=== PATIENT | male | born 1970 | race African-American/Black ===

== ENCOUNTER 2018-07-02 15:13 | Emergency (ER) | payer OTHER ==
[2018-07-02] MEDS ORDERED: Lorazepam 2 MG/ML VIAL ONE (16:23)
--- NOTE | 2018-07-02 16:30 | CT ---
NONCONTRAST CT HEAD: Date: )07/02/18 HISTORY: New onset seizure. COMPARISON: 02/19/05. FINDINGS: There is no evidence of a hemorrhage, acute infarction, mass effect, or midline shift. Ventricular sy stem is normal in size, shape, and position. There is minimal mucosal thickening in posterior left et hmoidal air cell. Mastoid air cells are clear. Calvarial structures are intact. The osseous density a djacent to the lateral right parietal bone is again seen and stable from prior study, and may represe nt an osteoma. IMPRESSION: No acute intracranial abnormality is demonstrated. POS: [facility]
[2018-07-02 16:53] LABS: #Basophils 0.1 thou/uL (0.0-0.2); #Monocytes 0.3 thou/uL (0.11-0.59); #Neutrophils 2.9 thou/uL (1.40-6.50); %Basophils 1.3 % (0.0-1.0); %Eosinophils 0.3 % (0.0-10.0); %Lymphocytes 22.9 % (21.0-51.0); %Monocytes 6.9 % (0.0-10.0); %Neutrophils 68.6 % (42.0-75.0); Hemoglobin 14.8 g/dL (14.0-18.0); Mean Corpuscular HGB CONC 34.8 g/dL (32.0-36.0); Mean Corpuscular Hemoglobin 35.2 pg (27.0-31.0); Mean Platelet Volume 7.1 fL (7.4-10.4); Platelet Count 157 thou/uL (130-400); RBC Distribution Width 14.3 % (11.5-14.5); Red Blood Cell (RBC) Count 4.21 mill/uL (4.70-6.10); White Blood Cell (WBC) Count 4.2 thou/uL (4.8-10.8)
[2018-07-02 17:07] LABS: ALT (SGPT) 47 U/L (8-55); AST (SGOT) 126 U/L (5-34); Albumin 4.4 g/dL (3.5-5.0); Alkaline Phosphatase 57 U/L (40-150); Anion Gap 26 mmol/L (10-20); BUN (Urea Nitrogen) 13 mg/dL (8.9-20.6); Bilirubin, Total 0.7 mg/dL (0.2-1.2); Calc. Creatinine Clearance 0 mL/min (70-130); Calcium 9.6 mg/dL (7.8-10.44); Carbon Dioxide 17 mmol/L (22-29); Chloride 97 mmol/L (98-107); Estimated GFR-MDRD Greater than 90; Glucose 88 mg/dL (70-105); Potassium 4.1 mmol/L (3.5-5.1); Protein, Total 7.4 g/dL (6.0-8.3); Sodium 136 mmol/L (136-145)
[2018-07-02 17:09] LABS: CKMB 3.3 ng/mL (0-6.6); Troponin I Less than 0.010 ng/mL (< 0.028)
== END 2018-07-02 18:28 | disposition home or self-care (01) ==
LOC: ERS 15:13
DX: R56.9 Unspecified convulsions (principal); F32.9 Major depressive disorder, single episode, unspecified; F17.210 Nicotine dependence, cigarettes, uncomplicated; Z79.899 Other long term (current) drug therapy
CPT/HCPCS: 36415; 70450; 80053; 82553; 84146; 84484; 85025; 96374; J2060

== ENCOUNTER 2019-09-29 04:25 | Observation (INO) | payer OTHER, SELFPAY ==
[2019-09-29 05:49] LABS: Hemoglobin 15.7 g/dL (14.0-18.0); Mean Corpuscular HGB CONC 34.1 g/dL (32.0-36.0); Mean Corpuscular Hemoglobin 32.9 pg (27.0-31.0); Mean Corpuscular Volume 96.5 fL (78.0-98.0); RBC Distribution Width 13.9 % (11.5-14.5); Red Blood Cell (RBC) Count 4.78 mill/uL (4.70-6.10)
[2019-09-29 05:57] LABS: ALT (SGPT) 87 U/L (8-55); AST (SGOT) 87 U/L (5-34); Albumin 4.2 g/dL (3.5-5.0); Alkaline Phosphatase 51 U/L (40-110); Anion Gap 14 mmol/L (10-20); BUN (Urea Nitrogen) 8 mg/dL (8.9-20.6); Bilirubin, Total 0.6 mg/dL (0.2-1.2); Calc. Creatinine Clearance 0 mL/min (70-130); Calcium 9.1 mg/dL (7.8-10.44); Carbon Dioxide 26 mmol/L (22-29); Chloride 99 mmol/L (98-107); Estimated GFR-MDRD Greater than 90; Globulin 2.5 g/dL (2.4-3.5); Glucose 94 mg/dL (70-105); Potassium 3.5 mmol/L (3.5-5.1); Protein, Total 6.7 g/dL (6.0-8.3); Sodium 135 mmol/L (136-145)
[2019-09-29 06:02] LABS: #Basophils 0.1 thou/uL (0.0-0.2); #Eosinphils 0.1 thou/uL (0.0-0.7); #Lymphocytes 1.8 thou/uL (1.20-3.40); #Monocytes 0.5 thou/uL (0.11-0.59); #Neutrophils 2.6 thou/uL (1.40-6.50); %Basophils 1.8 % (0.0-1.0); %Eosinophils 2.5 % (0.0-10.0); %Lymphocytes 34.9 % (21.0-51.0); %Monocytes 9.2 % (0.0-10.0); %Neutrophils 51.5 % (42.0-75.0); Mean Platelet Volume 8.8 fL (7.4-10.4); Platelet Count 108 thou/uL (130-400); Platelet Morphology Comment Appears Decreased
[2019-09-29 09:08] LABS: Troponin I Less than 0.010 ng/mL (< 0.028)
--- NOTE | 2019-09-29 09:17 | RAD ---
RADIOGRAPH CHEST 1 VIEW: DATE: 09/29/19 HISTORY: 49-year-old male with chest pain and cough. FINDINGS: There are no air space densities, pulmonary edema, pneumothorax, or cardiomegaly. The lateral costop hrenic angles are sharp. IMPRESSION: No acute cardiopulmonary findings. jn [] POS: [facility]
[2019-09-29] MEDS ORDERED: Nitroglycerin 0.4 MG TAB (25 Tab Bottle) PO PRN (09:48)
[2019-09-29 09:57] VITALS: BMI 26.6
[2019-09-29] MEDS ORDERED: Ipratropium Bromide 2.5 ml Neb NEB PRN (10:05)
[2019-09-29 15:12] LABS: Troponin I Less than 0.010 ng/mL (< 0.028)
[2019-09-29 15:34] VITALS: BP 111/67; TEMP 98.4
--- NOTE | 2019-09-29 16:07 | NM ---
MYOCARDIAL PERFUSION SCAN WITH SPECT IMAGING: HISTORY: Chest pain. TECHNIQUE: Examination was performed using 27.8 millicuries of 99m technetium sestamibi on the stress and 9.1 mi llicuries on the resting images. FINDINGS: This shows a normal distribution of radiopharmaceutical without signs of ischemia or scar. Wall motion: There is symmetric contractility to the ventricle. Left ventricular ejection fraction: The calculated left ventricular ejection fraction is 55%. IMPRESSION: No evidence of ischemic change. POS: [facility]
[2019-09-29] MEDS ORDERED: Regadenoson 0.4 MG/5 ML SYRINGE ONE (16:09)
[2019-09-29] MEDS ORDERED: levETIRAcetam 500 MG TAB PO SCH (21:00)
[2019-09-30] MEDS ORDERED: Enoxaparin Sodium 40 MG/0.4 ML SYRINGE SC SCH (09:00)
[2019-09-30] MEDS ORDERED: Aspirin 325 mg Enteric Coated Tablet PO SCH (09:00)
--- NOTE | 2019-09-30 12:09 | HP ---
CHIEF COMPLAINT: Chest pain. HISTORY OF PRESENT ILLNESS: The patient is a 49-year-old male with a past medical history of seizure, who presents to the hospital with chest pain that woke him up today. The patient states that for the past few days, he has not been feeling well. He has been feeling diaphoretic, has been having lower extremity weakness and has been having insomnia, unable to sleep. At this time, the patient was not really concerned, however when today this morning when he had chest pain, he was concerned, he felt like a tightness starting from his pelvis going all the way up to his chest, so he came into the hospital for further evaluation. He did take an aspirin, which seemed to relieve his pain. PAST MEDICAL HISTORY: History of seizures. He has been off his medications for the past two weeks, but restarted them again. Anxiety and depression. PAST SURGICAL HISTORY: He has had bursa right elbow surgery. SOCIAL HISTORY: He smokes two packs a day. He drinks about a significant amount of liquor, maybe 3 to 4 cups a day. However, he stopped drinking on . Denies any other recreational drug use. He is a full code. Lives with his . FAMILY HISTORY: History of some heart disease. REVIEW OF SYSTEMS: All negative except for the ones mentioned above in the HPI. PHYSICAL EXAMINATION: VITAL SIGNS: As of the following; temperature of 98.4, pulse rate 64, respiratory rate 14, oxygen saturation 97% on room air, and blood pressure 111/67. GENERAL: He is awake, alert, and oriented x3. Does not appear in distress. HEENT: Normocephalic and atraumatic. No lymphadenopathy noted. Pupils are equal and reactive to light. CV: S1 and S2 present. No murmurs, rubs, or gallops. ABDOMEN: Soft and nontender. Bowel sounds are present x2. EXTREMITIES: No edema. Pedal pulses are present x2. NEUROVASCULAR: There are no focal deficits noted. SKIN: No cuts, lesions, or bruises noted. LABORATORY RESULTS: WBCs of 5.0, hemoglobin 15.7, hematocrit of 46.1, and platelets of 108. Chemistry; sodium of 135, potassium of 3.5, BUN of 8, creatinine of 0.90. His troponins x3 were negative. His AST and ALT are mildly elevated. His EKG did not show any acute abnormalities. Chest x-ray appeared to have no acute changes. ASSESSMENT AND PLAN: The patient is a very pleasant 49-year-old male, who presents to the hospital with complaints of chest pain. 1. Atypical chest pain. His troponins x3 are negative. We will go ahead and do a stress test. His stress test was actually negative. The stress test indicated no evidence of ischemic changes. His EF was 55%. The patient will be discharged home. I have advised him about smoking cessation and also alcohol cessation given his mildly elevated LFTs. He understands and he is going to continue to stay away from alcohol. The symptoms that he was having earlier in terms of lower extremity weakness, insomnia, and anxiety, this could have been because he just stopped drinking all of a sudden on . I have also educated him on continuing his antiseizure medications. I am unclear exactly why he is still on that, is it because of alcohol withdrawal, seizures versus other. His home medications again, he will continue his Keppra and he does not want a nicotine patch. The patient was stable at the time of discharge. I have updated the patient's that his stress test was negative. Job ID: [id number]
== END 2019-09-29 16:54 | disposition home or self-care (01) ==
LOC: ERS 04:25 → 2SW 09:39
PROVIDERS: ADMIT Internal Medicine; ATTEND Student in an Organized Health Care Education/Training Program
DX: R07.89 Other chest pain (principal); R53.1 Weakness; F41.9 Anxiety disorder, unspecified; F32.9 Major depressive disorder, single episode, unspecified; F17.210 Nicotine dependence, cigarettes, uncomplicated; G47.00 Insomnia, unspecified; Z79.899 Other long term (current) drug therapy
CPT/HCPCS: 36415; 71045; 78452; 80053; 84484; 85025; 93005; 93017; A9500; G0378; J2785

== ENCOUNTER 2020-02-24 12:17 | Emergency (ER) | payer OTHER, SELFPAY ==
[2020-02-24 13:04] LABS: #Lymphocytes 1.3 thou/uL (1.20-3.40); #Monocytes 0.5 thou/uL (0.11-0.59); #Neutrophils 3.2 thou/uL (1.40-6.50); %Basophils 0.3 % (0.0-1.0); %Eosinophils 0.6 % (0.0-10.0); %Lymphocytes 25.9 % (21.0-51.0); %Monocytes 10.5 % (0.0-10.0); %Neutrophils 62.8 % (42.0-75.0); Mean Corpuscular HGB CONC 33.9 g/dL (32.0-36.0); Mean Corpuscular Hemoglobin 33.9 pg (27.0-31.0); Mean Platelet Volume 8.7 fL (7.4-10.4); Platelet Count 80 thou/uL (130-400); RBC Distribution Width 15.9 % (11.5-14.5); Red Blood Cell (RBC) Count 4.71 mill/uL (4.70-6.10)
[2020-02-24 13:13] LABS: ALT (SGPT) 62 U/L (8-55); AST (SGOT) 110 U/L (5-34); Albumin 4.7 g/dL (3.5-5.0); Alkaline Phosphatase 69 U/L (40-110); Anion Gap 23 mmol/L (10-20); BUN (Urea Nitrogen) 11 mg/dL (8.9-20.6); Bilirubin, Total 0.9 mg/dL (0.2-1.2); Calc. Creatinine Clearance 0 mL/min (70-130); Calcium 9.6 mg/dL (7.8-10.44); Carbon Dioxide 22 mmol/L (22-29); Chloride 96 mmol/L (98-107); Estimated GFR-MDRD Greater than 90; Globulin 2.8 g/dL (2.4-3.5); Glucose 132 mg/dL (70-105); Potassium 3.2 mmol/L (3.5-5.1); Protein, Total 7.5 g/dL (6.0-8.3); Sodium 138 mmol/L (136-145)
--- NOTE | 2020-02-24 13:27 | RAD ---
CHEST 1 VIEW: HISTORY: Cough, prior history of seizures. COMPARISON: 09/29/2019. FINDINGS: Heart size is within normal limits. The lungs are clear. No confluent pneumonia, overt edema, or pl eural effusion. IMPRESSION: No significant acute intrathoracic disease. Stable from prior study. POS: [facility]
[2020-02-24 13:28] LABS: Platelet Morphology Comment Appears Decreased; RBC Morphology Normal
[2020-02-24 13:43] LABS: Bacteria/HPF None Seen HPF (None Seen); Bilirubin Negative (Negative); Blood, Urine 1+ (Negative); Clarity Turbid (Clear); Glucose, Urine (Dipstick) Normal (Negative); Leukocyte Negative Leu/uL (Negative); Nitrite Negative (Negative); Protein, Urine (Dipstick) 300 mg/dL (Neg-Trace); Squamous Epithelial 0-3 HPF (0-3); WBC/HPF 0-3 HPF (0-3)
[2020-02-24 13:50] LABS: Amphetamine Not Detected (NotDetected); Barbiturates Screen Not Detected (NotDetected); Benzodiazepine Screen Not Detected (NotDetected); Cocaine Metabolite Screen Not Detected (NotDetected); Medtox Reader # READER 4; Methadone Not Detected (NotDetected); Methamphetamine Not Detected (NotDetected); Opiate Screen Not Detected (NotDetected); Oxycodone Screen Not Detected (NotDetected); Phencyclidine (PCP) Not Detected (NotDetected); THC/Cannabinoid Screen Not Detected (NotDetected); Tricyclic Screen Not Detected (NotDetected)
[2020-02-24 13:51] LABS: Medtox Control Line Valid? VALID (VALID)
[2020-02-24 13:53] LABS: Mucous/LPF 1+ LPF (<2+)
[2020-02-24] MEDS ORDERED: levETIRAcetam 500 MG TAB PO SCH (15:15)
== END 2020-02-24 15:54 | disposition home or self-care (01) ==
LOC: ERS 12:17
DX: R56.9 Unspecified convulsions (principal); F32.9 Major depressive disorder, single episode, unspecified; F41.9 Anxiety disorder, unspecified; F17.210 Nicotine dependence, cigarettes, uncomplicated
CPT/HCPCS: 36415; 71045; 80053; 80177; 80306; 81003; 81015; 85025

== ENCOUNTER 2021-02-13 09:49 | Emergency (ER) | payer BC, SELFPAY ==
[2021-02-13 11:06] LABS: ALT (SGPT) 99 U/L (8-55); AST (SGOT) 172 U/L (5-34); Albumin 4.5 g/dL (3.5-5.0); Alkaline Phosphatase 61 U/L (40-110); Anion Gap 23 mmol/L (10-20); BUN (Urea Nitrogen) 14 mg/dL (8.9-20.6); Bilirubin, Total 0.6 mg/dL (0.2-1.2); Calc. Creatinine Clearance 0 mL/min (70-130); Calcium 8.7 mg/dL (7.8-10.44); Carbon Dioxide 23 mmol/L (22-29); Chloride 99 mmol/L (98-107); Glucose 87 mg/dL (70-105); Lipase 57 U/L (8-78); Potassium 3.5 mmol/L (3.5-5.1); Protein, Total 7.5 g/dL (6.0-8.3); Sodium 141 mmol/L (136-145)
[2021-02-13 11:09] LABS: #Basophils 0.1 thou/uL (0.0-0.2); #Lymphocytes 1.5 thou/uL (1.20-3.40); #Monocytes 0.5 thou/uL (0.11-0.59); #Neutrophils 1.8 thou/uL (1.40-6.50); %Basophils 2.5 % (0.0-1.0); %Eosinophils 0.8 % (0.0-10.0); %Lymphocytes 38.2 % (21.0-51.0); %Monocytes 12.5 % (0.0-10.0); Hemoglobin 16.6 g/dL (14.0-18.0); Mean Corpuscular HGB CONC 33.6 g/dL (32.0-36.0); Mean Corpuscular Hemoglobin 33.1 pg (27.0-31.0); Mean Corpuscular Volume 98.7 fL (78.0-98.0); Mean Platelet Volume 7.7 fL (7.4-10.4); Platelet Count 99 thou/uL (130-400); Red Blood Cell (RBC) Count 5.02 mill/uL (4.70-6.10); White Blood Cell (WBC) Count 3.9 thou/uL (4.8-10.8)
[2021-02-13] MEDS ORDERED: Ondansetron PF 4 MG/2 ML Vial ONE (11:10)
[2021-02-13] MEDS ORDERED: Pantoprazole 40 MG VIAL ONE (11:10)
[2021-02-13] MEDS ORDERED: Folic Acid 1 MG, Multivitamins, Adult 10 ML in Dextrose 5 %-0.45 % NaCl 1,000 ML IV SCH (11:45)
[2021-02-13] MEDS ORDERED: Thiamine HCl 200 MG/2 ML VIAL SLOW IVP SCH (11:45)
== END 2021-02-13 15:01 | disposition home or self-care (01) ==
LOC: ERS 09:49
DX: K92.0 Hematemesis (principal); D52.9 Folate deficiency anemia, unspecified; R19.7 Diarrhea, unspecified; R74.8 Abnormal levels of other serum enzymes; R29.700 NIHSS score 0; F17.210 Nicotine dependence, cigarettes, uncomplicated; I10 Essential (primary) hypertension
CPT/HCPCS: 36415; 70450; 71045; 80053; 82607; 82746; 83690; 85025; 96365; 96366; 96375; C9113; J2405; J3411; J7042

== ENCOUNTER 2022-12-22 15:59 | Emergency (ER) | payer BC ==
[~2022-12-22 15:59] MED LIST: Iopamidol-370 76% 500 ML 1 ML ONE
[2022-12-22 16:36] LABS: PTT 26.2 sec (22.9-36.1); Prothrombin Time 13.3 sec (12.0-14.7)
[2022-12-22 16:37] LABS: Mean Corpuscular Hemoglobin 34.9 pg (27.0-31.0); Mean Platelet Volume 6.7 fL (7.4-10.4); Platelet Count 270 10x3/uL (130-400); RBC Distribution Width 14.9 % (11.5-14.5); Red Blood Cell (RBC) Count 4.88 mill/uL (4.70-6.10); White Blood Cell (WBC) Count 4.2 10x3/uL (4.8-10.8)
[2022-12-22 16:45] LABS: ALT (SGPT) 50 U/L (8-55); AST (SGOT) 73 U/L (5-34); Albumin 4.6 g/dL (3.5-5.0); Alkaline Phosphatase 49 U/L (40-110); Anion Gap 19 mmol/L (10-20); BUN (Urea Nitrogen) 12 mg/dL (8.9-20.6); Bilirubin, Total 0.5 mg/dL (0.2-1.2); Calc. Creatinine Clearance 0 mL/min (70-130); Carbon Dioxide 25 mmol/L (22-29); Chloride 100 mmol/L (98-107); Estimated GFR 107; Globulin 2.9 g/dL (2.4-3.5); Glucose 82 mg/dL (70-105); Lipase 58 U/L (8-78); Potassium 3.7 mmol/L (3.5-5.1); Protein, Total 7.5 g/dL (6.0-8.3); Sodium 140 mmol/L (136-145)
[2022-12-22 16:56] LABS: Band 1 % (5-11); Eosinophils 3 % (0-10); Lymphocytes 46 % (21-51); MDiff Complete? YES; Macrocytosis SLIGHT = 6-15 cells (100X) (0-5/hpf); Monocytes 5 % (0-10); Neutrophil 34 % (42-75); Platelet Morphology Comment Appears Adequate; Reactive Lymphocytes 8 % (0-10)
[2022-12-22 17:37] LABS: Clarity Clear (Clear); Glucose, Urine (Dipstick) Normal (Negative); Ketone, Urine Trace mg/dL (Negative); Leukocyte Negative Leu/uL (Negative); Nitrite Negative (Negative); Protein, Urine (Dipstick) 10 mg/dL (Neg-Trace); Urobilinogen 3 mg/dL (Less than 2)
[2022-12-22 17:38] LABS: Bacteria/HPF None Seen HPF (None Seen); Bilirubin Negative (Negative); Blood, Urine Trace (Negative); RBC/HPF 0-3 HPF (0-3); Squamous Epithelial 0-3 HPF (0-3); WBC/HPF 0-3 HPF (0-3)
[2022-12-22 17:39] LABS: Specific Gravity, Urine Greater than 1.060 (1.002-1.036)
== END 2022-12-22 18:40 | disposition home or self-care (01) ==
LOC: ERS 15:59
DX: R36.1 Hematospermia (principal); R11.10 Vomiting, unspecified; D72.819 Decreased white blood cell count, unspecified; I10 Essential (primary) hypertension; F17.210 Nicotine dependence, cigarettes, uncomplicated
CPT/HCPCS: 36415; 74177; 80053; 81003; 81015; 83690; 85025; 85610; 85730; 93005; Q9967

== ENCOUNTER 2023-01-18 17:01 | Emergency (ER) | payer BC ==
[2023-01-18] MEDS ORDERED: Famotidine/PF 20 mg/2ml Vial ONE (17:49)
[2023-01-18 18:06] LABS: #Basophils 0.1 thou/uL (0.0-0.2); #Lymphocytes 1.4 thou/uL (1.20-3.40); #Monocytes 0.7 thou/uL (0.11-0.59); #Neutrophils 2.3 thou/uL (1.40-6.50); %Basophils 2.5 % (0.0-1.0); %Eosinophils 0.5 % (0.0-10.0); %Lymphocytes 31.2 % (21.0-51.0); %Monocytes 14.5 % (0.0-10.0); %Neutrophils 51.3 % (42.0-75.0); Hemoglobin 15.7 g/dL (14.0-18.0); Mean Corpuscular HGB CONC 34.4 g/dL (32.0-36.0); Mean Corpuscular Hemoglobin 34.9 pg (27.0-31.0); Mean Platelet Volume 8.1 fL (7.4-10.4); Platelet Count 152 10x3/uL (130-400); Red Blood Cell (RBC) Count 4.51 mill/uL (4.70-6.10); White Blood Cell (WBC) Count 4.5 10x3/uL (4.8-10.8)
[2023-01-18] MEDS ORDERED: Thiamine HCl 200 MG/2 ML VIAL SLOW IVP SCH (18:15)
[2023-01-18 18:21] LABS: ALT (SGPT) 92 U/L (8-55); AST (SGOT) 97 U/L (5-34); Albumin 4.5 g/dL (3.5-5.0); Alcohol 436 mg/dL (Less than 10); Alkaline Phosphatase 60 U/L (40-110); Anion Gap 19 mmol/L (10-20); BUN (Urea Nitrogen) 11 mg/dL (8.9-20.6); Bilirubin, Total 0.3 mg/dL (0.2-1.2); Calc. Creatinine Clearance 0 mL/min (70-130); Calcium 8.9 mg/dL (7.8-10.44); Carbon Dioxide 23 mmol/L (22-29); Chloride 100 mmol/L (98-107); Estimated GFR 110; Glucose 141 mg/dL (70-105); Lipase 73 U/L (8-78); Magnesium 2.1 mg/dL (1.6-2.6); Protein, Total 7.5 g/dL (6.0-8.3); Sodium 138 mmol/L (136-145)
== END 2023-01-18 20:40 | disposition home or self-care (01) ==
LOC: ERS 17:01
DX: F10.129 Alcohol abuse with intoxication, unspecified (principal); K70.10 Alcoholic hepatitis without ascites; I10 Essential (primary) hypertension; F17.210 Nicotine dependence, cigarettes, uncomplicated
CPT/HCPCS: 74177; 80053; 80307; 83690; 83735; 85025; 93005; 94760; 96374; 96375; G0103; J3411; S0028